=== PATIENT | male | born 1990 | race Asian ===

== ENCOUNTER 2018-02-26 19:45 | Emergency (ER) | payer OTHER ==
[~2018-02-26] VITALS: Ht 180.3 cm; Wt 102.1 kg
[2018-02-26 20:55] VITALS: BP 155/84; TEMP 98.4
== END 2018-02-26 20:55 | disposition home or self-care (01) ==
LOC: ED 19:45
DX: S61.412A Laceration without foreign body of left hand, initial encounter (principal); W26.8XXA Contact with other sharp object(s), not elsewhere classified, initial encounter; Y92.89 Other specified places as the place of occurrence of the external cause
CPT/HCPCS: 90471; 90715; 96372; 99283; J0696

== ENCOUNTER 2018-11-12 23:41 | Emergency (ER) | payer OTHER ==
[~2018-11-12] VITALS: Ht 180.3 cm; Wt 106.1 kg
[2018-11-13 00:15] VITALS: BP 143/84; TEMP 98.6
== END 2018-11-13 00:15 | disposition home or self-care (01) ==
LOC: ED 23:41
DX: I10 Essential (primary) hypertension (principal)
CPT/HCPCS: 99281

== ENCOUNTER 2019-12-22 23:57 | Emergency (ER) | payer OTHER ==
[~2019-12-22] VITALS: Ht 180.3 cm; Wt 106.6 kg
[2019-12-23 00:54] LABS: PLATELET COUNT 279 K/uL (142-355)
[2019-12-23 01:12] LABS: POTASSIUM 3.9 mmol/L (3.6-5.2)
[2019-12-23 01:55] VITALS: TEMP 99.6
[2019-12-23 01:58] VITALS: BP 165/111
[2019-12-23 02:27] LABS: PARTIAL THROMBOPLASTIN TIME 21.4 SECONDS (24.5-33.6)
== END 2019-12-23 01:55 ==
LOC: ED 12-23
PROVIDERS: Hospitalist
DX: S00.83XA Contusion of other part of head, initial encounter (principal); S09.8XXA Other specified injuries of head, initial encounter; Y04.2XXA Assault by strike against or bumped into by another person, initial encounter; Y92.89 Other specified places as the place of occurrence of the external cause
CPT/HCPCS: 36415; 80048; 80320; 85027; 85610; 85730; 90715; 96372; 99284; J0690; J1885